=== PATIENT | male | born 1965 | race African-American/Black ===

== ENCOUNTER 2017-08-29 18:10 | Emergency (ER) | payer MEDICAID ==
[~2017-08-29] VITALS: Ht 185.4 cm; Wt 83.0 kg
[2017-08-29 18:40] VITALS: BP 117/62
== END 2017-08-30 | disposition left against medical advice (07) ==
LOC: ER 18:10
DX: R42 Dizziness and giddiness (principal); Z53.21 Procedure and treatment not carried out due to patient leaving prior to being seen by health care provider